=== PATIENT | male | born 1965 | race African-American/Black ===

== ENCOUNTER 2016-12-17 11:56 | Inpatient (IN) | payer OTHER ==
[2016-12-17 13:08] VITALS: BMI 24.3
--- NOTE | 2016-12-17 15:32 | HP ---
CIWA Score - CIWA Score Nausea/Vomitin-No Nausea/No Vomiting Muscle Tremors: 4-Moderate,w/Arms Extend Anxiety: 5 Agitation: 4-Moderately Restless Paroxysmal Sweats: 1-Minimal Palms Moist Orientation: 0-Oriented Tacttile Disturbances: 2-Mild Itch/Numbness/Burn Auditory Disturbances: 0-None Visual Disturbances: 0-None Headache: 0-None Present CIWA-Ar Total Score: 16 Admission ROS BHS - HPI Chief Complaint: DETOX [place] FOR ALCOHOL DEPENDENCE Allergies/Adverse Reactions: Allergies Allergy/AdvReac Type Severity Reaction Status Date / Time No Known Allergies Allergy Verified 12/17/16 14:47 History of Present Illness: 51 Y/O MALE WITH A HX OF ALCOHOL DEPENDENCE SEEKING DETOX [place] Exam Limitations: No Limitations - Ebola screening Have you traveled outside of the country in the last 21 days: No Have you had contact with anyone from an Ebola affected area: No Have you been sick,other than usual withdrawal symptoms: No Do you have a fever: No - Review of Systems Constitutional: Chills, Loss of Appetite, Night Sweats, Changes in sleep, Unintentional Wgt. Loss EENT: reports: Blurred Vision, Tearing, Nose Congestion, Dental Problems (UPPER PARTIAL DENTURE) Respiratory: reports: No Symptoms reported Cardiac: reports: Irregular Heart Rate (TO CIGARRETE SMOKING), Lightheadedness, Chest Tightness GI: reports: Poor Appetite, Poor Fluid Intake : reports: Frequency Musculoskeletal: reports: Back Pain, Joint Pain, Muscle Pain Integumentary: reports: No Symptoms Reported Neuro: reports: Tremors, Unsteady Gait, Dizziness Endocrine: reports: No Symptoms Reported Hematology: reports: No Symptoms Reported Psychiatric: reports: Orientated x3, Anxious Other Systems: Reviewed and Negative Patient History - Patient Medical History Hx Anemia: No Hx Asthma: No Hx Chronic Obstructive Pulmonary Disease (COPD): No Hx Cardiac Disorders: No Hx Hypertension: No Hx Hypercholesterolemia: No HX Cerebrovascular Accident: No Hx Seizures: No Hx Diabetes: No Hx Gastrointestinal Disorders: No Hx Genitourinary Disorders: No Hx Sexually Transmitted Disorders: No Hx Renal Disease (ESRD): No Hx Thyroid Disease: No Hx Human Immunodeficiency Virus (HIV): No (NEGATIVE HX) Hx Hepatitis C: No Hx Depression: No Hx Suicide Attempt: No (DENIES) Hx Schizophrenia: No - Patient Surgical History Past Surgical History: No Hx Neurologic Surgery: No Hx Cataract Extraction: No Hx Cardiac Surgery: No Hx Lung Surgery: No Hx Breast Surgery: No Hx Breast Biopsy: No Hx Abdominal Surgery: No Hx Appendectomy: No Hx Cholecystectomy: No Hx Genitourinary Surgery: No Hx Orthopedic Surgery: No Anesthesia Reaction: No - PPD History Previous Implant?: Yes Documented Results: Negative w/o proof Implanted On Prior [facility] Admission?: No PPD to be Administered?: Yes - Reproductive History Patient is a Female of Child Bearing Age (11 -55 yrs old): No (MALE) - Smoking Cessation Smoking history: Current every day smoker Have you smoked in the past 12 months: Yes Aproximately how many cigarettes per day: 20 Hx Chewing Tobacco Use: No Initiated information on smoking cessation: Yes 'Breaking Loose' booklet given: 12/17/16 - Substance & Tx. History Hx Alcohol Use: Yes (BEER/COGNAC) Hx Substance Use: Yes (COCAINE) Substance Use Type: Alcohol, Cocaine Hx Substance Use Treatment: No (FIRST TIME IN [place]) - Substances Abused Alcohol Route: Oral Frequency: Daily Amount used: 2 6PK BEERS/ 1 PINT COGNAC Age of first use: 12 Date of Last Use: 12/17/16 Cocaine Route: Smoking Frequency: Daily Amount used: $200 Age of first use: 15 Date of Last Use: 12/17/16 Family Disease History - Family Disease History Family History: Denies Admission Physical Exam S - Vital Signs Vital Signs: Vital Signs - 24 hr 12/17/16 13:06 Temperature 97 F L Pulse Rate 84 Respiratory 20 Rate Blood Pressure 102/66 - Physical General Appearance: Yes: Moderate Distress, Irritable, Anxious HEENTM: Yes: EOMI, ROBERTO, Pharynx Normal, Nasal Congestion, Rhinorrhea Respiratory: Yes: Chest Non-Tender, Lungs Clear, Normal Breath Sounds, No Respiratory Distress Neck: Yes: Supple, Trachea in good position Cardiology: Yes: Regular Rhythm, Regular Rate, S1, S2 Abdominal: Yes: Normal Bowel Sounds, Non Tender, Soft Genitourinary: Yes: Other (N/C) Back: Yes: Within Normal Limits Musculoskeletal: Yes: full range of Motion, Gait Steady Extremities: Yes: Normal Range of Motion, Non-Tender, Tremors Neurological: Yes: construction manager II-XII NML intact, Fully Oriented, Alert, Motor Strength 5/5 Integumentary: Yes: Warm Lymphatic: Yes: Within Normal Limits - Diagnostic (1) Alcohol dependence with uncomplicated withdrawal Current Visit: Yes Status: Acute (2) Cocaine dependence, uncomplicated Current Visit: Yes Status: Acute Cleared for Admission [facility] - Detox or Rehab [facility] Level of Care: Medically Managed Detox Regimen/Protocol: Librium [facility] Breath Alcohol Content Breath Alcohol Content: 0 Urine Drug Screen - Results Drug Screen Negative: No Urine Drug Screen Results: DEMARCUS-Cocaine
[2016-12-17] MEDS ORDERED: P-EPHED 60MG/TRIPROLIDI 2.5MG TABLET PO PRN (15:51)
[2016-12-17] MEDS ORDERED: guaiFENesin/D-METHORPHAN HB 10 ML UNIT-DOSE CUPS PO PRN (15:51)
[2016-12-17] MEDS ORDERED: MAGNESIUM HYDROX 2400MG/30ML ORAL SUSPENSION 30 ML CUP PO PRN (15:51)
[2016-12-17] MEDS ORDERED: hydrOXYzine PAMOATE 25 MG CAPSULE (FP) PO PRN (15:51)
[2016-12-17] MEDS ORDERED: MAGNESIUM CITRATE 300 ML BOTTLE PO PRN (15:51)
[2016-12-17] MEDS ORDERED: NICOTINE POLACRILEX 4 MG GUM BUC PRN (15:51)
[2016-12-17] MEDS ORDERED: MAG HYDROX/AL HYDROX/SIMETH 30 ML UNIT-DOSE CUP PO PRN (15:51)
[2016-12-17] MEDS ORDERED: LOPERAMIDE HCL 2 MG CAPSULE PO PRN (15:51)
[2016-12-17] MEDS ORDERED: ACETAMINOPHEN 325 MG TABLET (FP) PO PRN (15:51)
[2016-12-17] MEDS ORDERED: MENTHOL/PHENOL 1 EACH UD MM PRN (15:51)
[2016-12-17] MEDS ORDERED: IBUPROFEN 400 MG TABLET (FP) PO PRN (15:51)
[2016-12-17] MEDS ORDERED: chlordiazePOXIDE HCL 25 MG CAPSULE PO PRN (15:51)
[2016-12-17] MEDS: chlordiazePOXIDE HCL 25 MG CAPSULE PO SCH ×2 (18:05→22:28)
[2016-12-17] MEDS: NICOTINE 21 MG/24 HOURS TOPICAL PATCH TD SCH (18:06)
[2016-12-17] MEDS: diphenhydrAMINE HCL 50 MG CAPSULE PO PRN (22:28)
[2016-12-17] MEDS: THIAMINE HCL 100 MG TABLET (FP) PO SCH (22:28)
[2016-12-18] MEDS: chlordiazePOXIDE HCL 25 MG CAPSULE PO SCH ×4 (06:09→22:23)
[2016-12-18] MEDS: PRENATAL VITAMINS W/ FOLIC ACID TABLET (FP) PO SCH (10:21)
[2016-12-18] MEDS: NICOTINE 21 MG/24 HOURS TOPICAL PATCH TD SCH (10:21)
[2016-12-18 10:25] LABS: WHITE BLOOD COUNT 5.4 K/mm3 (4.0-10.0)
[2016-12-18 10:26] LABS: MCH 28.2 pg (25.7-33.7); MCHC 32.6 g/dl (32.0-35.9); MEAN CELL VOLUME 86.7 fl (80-96); MEAN PLT VOLUME 8.8 fl (7.5-11.1); PLATELET COUNT 248 K/MM3 (134-434); RDW 15.2 % (11.9-15.9)
[2016-12-18 10:30] LABS: ALBUMIN 3.7 g/dl (3.4-5.0); BILIRUBIN,TOTAL 0.4 mg/dL (0.2-1.0); CALCIUM 8.8 mg/dL (8.5-10.1); CREATININE 1.4 mg/dL (0.7-1.3)
--- NOTE | 2016-12-18 10:43 | PN ---
[facility] CIWA - CIWA Score Nausea/Vomitin-No Nausea/No Vomiting Muscle Tremors: 4-Moderate,w/Arms Extend Anxiety: 5 Agitation: 4-Moderately Restless Paroxysmal Sweats: 1-Minimal Palms Moist Orientation: 0-Oriented Tacttile Disturbances: 3-Moderate Itch/Numb/Burn Auditory Disturbances: 0-None Visual Disturbances: 0-None Headache: 0-None Present CIWA-Ar Total Score: 17 S Progress Note (SOAP) Subjective: ANXIETY,TREMORS, SWEATS, FATIGUE. Objective: 12/18/16 10:42 Vital Signs Temperature 96.8 F L 12/18/16 10:38 Pulse Rate 74 12/18/16 10:38 Respiratory Rate 18 12/18/16 10:38 Blood Pressure 95/61 12/18/16 10:38 O2 Sat by Pulse Oximetry (%) Laboratory Last Values WBC 5.4 K/mm3 (4.0-10.0) 12/18/16 06:00 RBC 4.79 M/mm3 (4.00-5.60) 12/18/16 06:00 Hgb 13.5 GM/dL (11.7-16.9) 12/18/16 06:00 Hct 41.5 % (35.4-49) 12/18/16 06:00 MCV 86.7 fl (80-96) 12/18/16 06:00 MCHC 32.6 g/dl (32.0-35.9) 12/18/16 06:00 RDW 15.2 % (11.9-15.9) 12/18/16 06:00 Plt Count 248 K/MM3 (134-434) 12/18/16 06:00 MPV 8.8 fl (7.5-11.1) 12/18/16 06:00 Sodium 141 mmol/L (136-145) 12/18/16 06:00 Potassium 4.2 mmol/L (3.5-5.1) 12/18/16 06:00 Chloride 103 mmol/L (98-107) 12/18/16 06:00 Carbon Dioxide 29 mmol/L (21-32) 12/18/16 06:00 Anion Gap 9 (8-16) 12/18/16 06:00 BUN 13 mg/dL (7-18) 12/18/16 06:00 Creatinine 1.4 mg/dL (0.7-1.3) H 12/18/16 06:00 Creat Clearance w eGFR 53.22 (>60) 12/18/16 06:00 Random Glucose 112 mg/dL (74-106) H 12/18/16 06:00 Calcium 8.8 mg/dL (8.5-10.1) 12/18/16 06:00 Total Bilirubin 0.4 mg/dL (0.2-1.0) 12/18/16 06:00 AST 19 U/L (15-37) 12/18/16 06:00 ALT 18 U/L (12-78) 12/18/16 06:00 Alkaline Phosphatase 105 U/L (45-117) 12/18/16 06:00 Total Protein 7.0 g/dl (6.4-8.2) 12/18/16 06:00 Albumin 3.7 g/dl (3.4-5.0) 12/18/16 06:00 Assessment: 12/18/16 10:42 WITHDRAWAL SX Plan: CONTINUE DETOX
[2016-12-18 12:05] LABS: SICKLE CELL SCREEN NEGATIVE (NEGATIVE)
--- NOTE | 2016-12-18 17:44 | EKG ---
Test Reason : Blood Pressure : / mmHG Vent. Rate : 073 BPM Atrial Rate : 073 BPM P-R Int : 154 ms QRS Dur : 082 ms QT Int : 372 ms P-R-T Axes : 054 079 065 degrees QTc Int : 409 ms NORMAL SINUS RHYTHM NORMAL ECG NO PREVIOUS ECGS AVAILABLE Confirmed by LUDWIN MUNGUIA MD ([id number]) on 12/18/2016 5:43:41 PM Referred By: Confirmed By:LUDWIN MUNGUIA MD
[2016-12-18 20:17] LABS: URINE APPEARANCE CLEAR; URINE BILIRUBIN NEGATIVE (NEGATIVE); URINE BLOOD NEGATIVE (NEGATIVE); URINE COLOR YELLOW; URINE GLUCOSE (UA) NEGATIVE (NEGATIVE); URINE KETONE NEGATIVE (NEGATIVE); URINE LEUK ESTERASE NEGATIVE (NEGATIVE); URINE NITRITE NEGATIVE (NEGATIVE); URINE PROTEIN NEGATIVE (NEGATIVE); URINE UROBILINOGEN 4.0 E.U/dl E.U./dl (0.2-1.0)
[2016-12-18] MEDS: diphenhydrAMINE HCL 50 MG CAPSULE PO PRN (22:23)
[2016-12-18] MEDS: THIAMINE HCL 100 MG TABLET (FP) PO SCH (22:23)
[2016-12-19] MEDS: chlordiazePOXIDE HCL 25 MG CAPSULE PO SCH ×2 (05:56→10:32)
[2016-12-19] MEDS: PRENATAL VITAMINS W/ FOLIC ACID TABLET (FP) PO SCH (10:32)
--- NOTE | 2016-12-19 10:32 | PN ---
[facility] CIWA - CIWA Score Nausea/Vomitin-No Nausea/No Vomiting Muscle Tremors: 4-Moderate,w/Arms Extend Anxiety: 4-Mod. Anxious/Guarded Agitation: 4-Moderately Restless Paroxysmal Sweats: 1-Minimal Palms Moist Orientation: 0-Oriented Tacttile Disturbances: 3-Moderate Itch/Numb/Burn Auditory Disturbances: 0-None Visual Disturbances: 0-None Headache: 0-None Present CIWA-Ar Total Score: 16 S Progress Note (SOAP) Subjective: ANXIETY,SWEATS,SLIGHT TREMORS,FATIGUE. C/O FEET PAIN/BLISTERS. Objective: 12/19/16 10:31 Vital Signs Temperature 97.1 F L 12/19/16 09:47 Pulse Rate 78 12/19/16 09:47 Respiratory Rate 18 12/19/16 09:47 Blood Pressure 108/71 12/19/16 09:47 O2 Sat by Pulse Oximetry (%) Laboratory Last Values WBC 5.4 K/mm3 (4.0-10.0) 12/18/16 06:00 RBC 4.79 M/mm3 (4.00-5.60) 12/18/16 06:00 Hgb 13.5 GM/dL (11.7-16.9) 12/18/16 06:00 Hct 41.5 % (35.4-49) 12/18/16 06:00 MCV 86.7 fl (80-96) 12/18/16 06:00 MCHC 32.6 g/dl (32.0-35.9) 12/18/16 06:00 RDW 15.2 % (11.9-15.9) 12/18/16 06:00 Plt Count 248 K/MM3 (134-434) 12/18/16 06:00 MPV 8.8 fl (7.5-11.1) 12/18/16 06:00 Sickle Cell Screen Negative (NEGATIVE) 12/18/16 06:00 Sodium 141 mmol/L (136-145) 12/18/16 06:00 Potassium 4.2 mmol/L (3.5-5.1) 12/18/16 06:00 Chloride 103 mmol/L (98-107) 12/18/16 06:00 Carbon Dioxide 29 mmol/L (21-32) 12/18/16 06:00 Anion Gap 9 (8-16) 12/18/16 06:00 BUN 13 mg/dL (7-18) 12/18/16 06:00 Creatinine 1.4 mg/dL (0.7-1.3) H 12/18/16 06:00 Creat Clearance w eGFR 53.22 (>60) 12/18/16 06:00 Random Glucose 112 mg/dL (74-106) H 12/18/16 06:00 Calcium 8.8 mg/dL (8.5-10.1) 12/18/16 06:00 Total Bilirubin 0.4 mg/dL (0.2-1.0) 12/18/16 06:00 AST 19 U/L (15-37) 12/18/16 06:00 ALT 18 U/L (12-78) 12/18/16 06:00 Alkaline Phosphatase 105 U/L (45-117) 12/18/16 06:00 Total Protein 7.0 g/dl (6.4-8.2) 12/18/16 06:00 Albumin 3.7 g/dl (3.4-5.0) 12/18/16 06:00 Urine Color Yellow 12/18/16 15:00 Urine Appearance Clear 12/18/16 15:00 Urine pH 6.0 (5.0-8.0) 12/18/16 15:00 Ur Specific [place] 1.031 (1.001-1.035) 12/18/16 15:00 Urine Protein Negative (NEGATIVE) 12/18/16 15:00 Urine Glucose (UA) Negative (NEGATIVE) 12/18/16 15:00 Urine Ketones Negative (NEGATIVE) 12/18/16 15:00 Urine Blood Negative (NEGATIVE) 12/18/16 15:00 Urine Nitrite Negative (NEGATIVE) 12/18/16 15:00 Urine Bilirubin Negative (NEGATIVE) 12/18/16 15:00 Urine Urobilinogen 4.0 e.u/dl E.U./dl (0.2-1.0) 12/18/16 15:00 Ur Leukocyte Esterase Negative (NEGATIVE) 12/18/16 15:00 RPR Titer Nonreactive (NONREACTIVE) 12/18/16 06:00 Assessment: 12/19/16 10:31 WITHDRAWAL SX Plan: CONTINU DETOX BACITRACIN OINTMENT DIRECTED
[2016-12-19] MEDS: NICOTINE 21 MG/24 HOURS TOPICAL PATCH TD SCH (10:33)
[2016-12-19] MEDS: BACITRACIN 0.9 GM PACKET TP SCH ×2 (10:34→22:38)
[2016-12-19] MEDS: chlordiazePOXIDE 5 MG CAPSULE PO SCH ×2 (17:34→22:38)
[2016-12-19] MEDS: diphenhydrAMINE HCL 50 MG CAPSULE PO PRN (22:38)
[2016-12-19] MEDS: THIAMINE HCL 100 MG TABLET (FP) PO SCH (22:38)
[2016-12-20] MEDS: chlordiazePOXIDE 5 MG CAPSULE PO SCH ×2 (06:16→10:35)
[2016-12-20] MEDS: BACITRACIN 0.9 GM PACKET TP SCH ×2 (10:35→22:08)
[2016-12-20] MEDS: PRENATAL VITAMINS W/ FOLIC ACID TABLET (FP) PO SCH (10:36)
[2016-12-20] MEDS: NICOTINE 21 MG/24 HOURS TOPICAL PATCH TD SCH (10:36)
--- NOTE | 2016-12-20 11:06 | PN ---
S Progress Note (SOAP) Subjective: ANXIETY,SWEATS,FATIGUE, Objective: 12/20/16 11:04 Vital Signs Temperature 98.0 F 12/20/16 10:21 Pulse Rate 72 12/20/16 10:21 Respiratory Rate 18 12/20/16 10:21 Blood Pressure 108/75 12/20/16 10:21 O2 Sat by Pulse Oximetry (%) FEET:DRY AND SCALY WITH DARK PAINFUL CRACKS Assessment: 12/20/16 11:05 WITHDRAWAL SX Plan: CONTINUE DETOX BETADINE FOOT SOAK BACITRACIN OINTMENT
[2016-12-20] MEDS: POVIDONE-IODINE 10% SOLN 118 ML BOTTLE TP SCH ×2 (12:30→23:15)
[2016-12-20] MEDS: chlordiazePOXIDE HCL 10 MG CAPSULE PO SCH ×2 (18:24→22:08)
[2016-12-20] MEDS: diphenhydrAMINE HCL 50 MG CAPSULE PO PRN (22:08)
[2016-12-20] MEDS: THIAMINE HCL 100 MG TABLET (FP) PO SCH (22:09)
[2016-12-20 22:16] VITALS: BP 106/68; PULSE 84; TEMP 96.8
[2016-12-21] MEDS: chlordiazePOXIDE HCL 10 MG CAPSULE PO SCH (06:13)
[2016-12-21] MEDS: NICOTINE 21 MG/24 HOURS TOPICAL PATCH TD SCH (09:46)
[2016-12-21] MEDS: BACITRACIN 0.9 GM PACKET TP SCH (09:46)
[2016-12-21] MEDS: PRENATAL VITAMINS W/ FOLIC ACID TABLET (FP) PO SCH (09:46)
[2016-12-21] MEDS: POVIDONE-IODINE 10% SOLN 118 ML BOTTLE TP SCH (09:48)
--- NOTE | 2016-12-21 09:51 | DS ---
[facility] Detox Discharge Summary Admission Date: 12/17/16 Discharge Date: 12/21/16 - History Present History: Alcohol Dependence, Cocaine Dependence Additional Comments: DETOX COMPLETED. ALERT O X 3. NAD. REPEAT FASTING BGM 92 MG/DL Pertinent Past History: HEALING BLISTERS BOTH FEET. - Physical Exam Results Vital Signs: Vital Signs Temperature 96.8 F L 12/20/16 22:15 Pulse Rate 84 12/20/16 22:15 Respiratory Rate 20 12/21/16 03:30 Blood Pressure 106/68 12/20/16 22:15 O2 Sat by Pulse Oximetry (%) Pertinent Admission Physical Exam Findings: WITHDRAWAL SX HEALING BLISTERS BOTH FEET Laboratory Last Values WBC 5.4 K/mm3 (4.0-10.0) 12/18/16 06:00 RBC 4.79 M/mm3 (4.00-5.60) 12/18/16 06:00 Hgb 13.5 GM/dL (11.7-16.9) 12/18/16 06:00 Hct 41.5 % (35.4-49) 12/18/16 06:00 MCV 86.7 fl (80-96) 12/18/16 06:00 MCHC 32.6 g/dl (32.0-35.9) 12/18/16 06:00 RDW 15.2 % (11.9-15.9) 12/18/16 06:00 Plt Count 248 K/MM3 (134-434) 12/18/16 06:00 MPV 8.8 fl (7.5-11.1) 12/18/16 06:00 Sickle Cell Screen Negative (NEGATIVE) 12/18/16 06:00 Sodium 141 mmol/L (136-145) 12/18/16 06:00 Potassium 4.2 mmol/L (3.5-5.1) 12/18/16 06:00 Chloride 103 mmol/L (98-107) 12/18/16 06:00 Carbon Dioxide 29 mmol/L (21-32) 12/18/16 06:00 Anion Gap 9 (8-16) 12/18/16 06:00 BUN 13 mg/dL (7-18) 12/18/16 06:00 Creatinine 1.4 mg/dL (0.7-1.3) H 12/18/16 06:00 Creat Clearance w eGFR 53.22 (>60) 12/18/16 06:00 POC Glucometer 92 UNITS (()) 12/20/16 06:19 Random Glucose 112 mg/dL (74-106) H 12/18/16 06:00 Calcium 8.8 mg/dL (8.5-10.1) 12/18/16 06:00 Total Bilirubin 0.4 mg/dL (0.2-1.0) 12/18/16 06:00 AST 19 U/L (15-37) 12/18/16 06:00 ALT 18 U/L (12-78) 12/18/16 06:00 Alkaline Phosphatase 105 U/L (45-117) 12/18/16 06:00 Total Protein 7.0 g/dl (6.4-8.2) 12/18/16 06:00 Albumin 3.7 g/dl (3.4-5.0) 12/18/16 06:00 Urine Color Yellow 12/18/16 15:00 Urine Appearance Clear 12/18/16 15:00 Urine pH 6.0 (5.0-8.0) 12/18/16 15:00 Ur Specific [place] 1.031 (1.001-1.035) 12/18/16 15:00 Urine Protein Negative (NEGATIVE) 12/18/16 15:00 Urine Glucose (UA) Negative (NEGATIVE) 12/18/16 15:00 Urine Ketones Negative (NEGATIVE) 12/18/16 15:00 Urine Blood Negative (NEGATIVE) 12/18/16 15:00 Urine Nitrite Negative (NEGATIVE) 12/18/16 15:00 Urine Bilirubin Negative (NEGATIVE) 12/18/16 15:00 Urine Urobilinogen 4.0 e.u/dl E.U./dl (0.2-1.0) 12/18/16 15:00 Ur Leukocyte Esterase Negative (NEGATIVE) 12/18/16 15:00 RPR Titer Nonreactive (NONREACTIVE) 12/18/16 06:00 - Treatment Hospital Course: Detox Protocol Followed, Detoxed Safely, Responded well, Discharged Condition Good - Medication Discharge Medications: Ambulatory Orders NK [No Known Home Medication] 12/17/16 - Diagnosis (1) Alcohol dependence with uncomplicated withdrawal Current Visit: Yes Status: Acute (2) Cocaine dependence, uncomplicated Current Visit: Yes Status: Acute - AMA Did Patient Leave Against Medical Advice: No
== END 2016-12-21 10:17 | disposition home or self-care (01) | DRG 774 ==
LOC: YASAS 11:56 → Y3N 15:47
PROVIDERS: ADMIT Internal Medicine; ATTEND Internal Medicine
PROC: HZ2ZZZZ Detoxification Services for Substance Abuse Treatment (ICD-10-PCS; principal; 2016-12-21)
DX: F10.230 Alcohol dependence with withdrawal, uncomplicated (principal); F14.20 Cocaine dependence, uncomplicated
CPT/HCPCS: 36415; 80053; 81003; 85027; 85660; 86593; 93005; 93010